=== PATIENT | male | born 1960 | race Caucasian/White ===

== ENCOUNTER → 2016-10-01 | Outpatient (CLI) | payer BC | LOC: GMAL 10:25 | PROVIDERS: ATTEND Family Medicine | DX: R53.83 Other fatigue (principal); Z12.5 Encounter for screening for malignant neoplasm of prostate ==

== ENCOUNTER → 2016-10-05 | Outpatient (CLI) | payer BC, SELFPAY ==
--- NOTE | 2016-10-05 10:15 | CT ---
EXAM DESCRIPTION: Abdomen and pelvis CT. CLINICAL HISTORY: Benign neoplasm of the adrenal gland COMPARISON: January 20, 2015 TECHNIQUE: A volumetric CT with a without contrast was obtained during the portal venous and delayed phases. Images are displayed in multiplanar reconstructions. FINDINGS: GI: No dilated bowel, free air, or free fluid. Liver: No suspicious lesion. Biliary: No calcified gallstones. Spleen: Unremarkable. Pancreas: Unremarkable. Adrenal Glands: The right adrenal gland has decreased in size minimally when compared to the prior study. On the prior exam it measured 4.9 x 4.2 cm. On today's study measures 3.8 by 3.5 cm. The left adrenal gland is unremarkable. Kidneys: No suspicious enhancement. Pelvic organs: The prostate is enlarged. It measures 4.7 cm in diameter. Bones: No suspicious lesion/fracture. Lymph nodes: No enlarged lymph nodes. Lung bases: No significant consolidation or nodularity. IMPRESSION: When compared to the prior study from January 2015 the right adrenal mass has decreased minimally in size and now measures 3.8 x 3.5 cm. Given its near 2 years stability and a slight decrease in size this is likely compatible with a benign adrenal adenoma. No 15 min delayed images were available to calculate absolute washout on today's study. Prostatomegaly noted. The prostate measures 4.7 cm in the transverse dimension. Electronically signed by: Vikas Brumfield MD 10/05/2016 10:13
== END ==
LOC: CT 08:11
PROVIDERS: ATTEND Family Medicine
DX: D35.00 Benign neoplasm of unspecified adrenal gland (principal)

== ENCOUNTER → 2016-11-11 | Outpatient (CLI) | payer BC, SELFPAY | END | disposition home or self-care (01) | LOC: GMAL 10:42 | PROVIDERS: ATTEND Family Medicine | DX: R97.20 Elevated prostate specific antigen [PSA] (principal) ==

== ENCOUNTER 2017-01-27 15:18 | Emergency (ER) | payer BC ==
[2017-01-27] MEDS ORDERED: SODIUM CHLORIDE 0.9% 1000ML 1,000 ML IVS ONE (15:58)
[2017-01-27] MEDS ORDERED: ONDANSETRON INJ 4 MG/2 ML VIAL IV ONE (15:58)
[2017-01-27] MEDS ORDERED: HYDROmorphone HCL INJ 2 MG/ML VIAL IV ONE (15:58)
--- NOTE | 2017-01-27 16:02 | ED.PDOC ---
History of Present Illness - General Chief Complaint: Abdominal Pain Stated Complaint: Abdominal Pain Time Seen by Provider: 01/27/17 15:58 Information Source: patient, RN notes reviewed, Vital Signs reviewed Exam Limitations: no limitations - History of Present Illness Initial Comments: Patient reports RLQ abd. pain that started 2 days ago. The pain has gotten worse. + nausea and diarrhea but he did take mag citrate thinking he was constipated. No fever or chills. No TAN. no back pain, no urinary symptoms. Abdominal Pain Onset Location: RUQ Pain Radiation: no radiation Quality: severe, steady, stabbing Timing/Duration: days - 2 Improving Factors: nothing Worsening Factors: movement Associated Symptoms: diarrhea, nausea/vomiting Review of Systems - Review of Systems Constitutional: States: no symptoms reported. Denies: chills, fever EENTM: States: no symptoms reported Respiratory: States: no symptoms reported Cardiology: States: no symptoms reported Gastrointestinal/Abdominal: States: see HPI, abdominal pain, diarrhea, nausea Genitourinary: States: no symptoms reported Musculoskeletal: States: no symptoms reported. Denies: back pain Skin: States: no symptoms reported Neurological: States: no symptoms reported. Denies: headache Past Medical History (General) - Patient Medical History Hx Hypertension: Yes Hx Diabetes: No Hx Cancer: No Hx Hepatitis C: No Surgical History: no surgical history - Vaccination History Hx Tetanus, Diphtheria Vaccination: No Hx Influenza Vaccination: No Hx Pneumococcal Vaccination: No Immunizations Up to Date: Yes - Social History Hx Tobacco Use: No Hx Alcohol Use: No Hx Substance Use: No Hx Substance Use Treatment: No Hx Depression: No - Female History Patient : No Family Medical History - Family History Mother Family History: Unknown Physical Exam - Physical Exam General Appearance: Alert, Ill Appearing, Well Developed, Well Groomed, Well Hydrated, Well Nourished, Other - Uncomfortable Neck: non-tender, full range of motion, supple, normal inspection Respiratory: chest non-tender, lungs clear, normal breath sounds, no respiratory distress, no accessory muscle use Cardiovascular/Chest: regular rate, rhythm, no gallop, no murmur Gastrointestinal/Abdominal: abnormal bowel sounds - decreased, guarding, rebound - RLQ, tenderness - RLQ Extremity: normal range of motion, non-tender, normal inspection Neurologic: alert, normal mood/affect, oriented x 3 Skin Exam: normal color, warm/dry Comments: Vital Signs - 24 hr 01/27/17 15:31 Temperature 102.0 F H Pulse Rate [ 97 H Left Radial] Respiratory 18 Rate Blood Pressure 133/94 [Left Arm] O2 Sat by Pulse 99 Oximetry Progress - Results/Orders Results/Orders: Laboratory Tests 01/27/17 01/27/17 01/27/17 15:45 15:45 15:45 WBC 21.9 H* RBC 4.80 Hgb 14.7 Hct 43.2 MCV 89.9 MCH 30.6 MCHC 34.1 RDW 13.2 Plt Count 347 MPV 7.2 L Absolute Neuts (auto) Not Reportable Absolute Lymphs (auto) Not Reportable Absolute Monos (auto) Not Reportable Absolute Eos (auto) Not Reportable Neutrophils % Not Reportable Neutrophils % (Manual) 87.0 Lymphocytes % Not Reportable Lymphocytes % (Manual) 3.0 Monocytes % Not Reportable Monocytes % (Manual) 2.0 Eosinophils % Not Reportable Basophils % Not Reportable Band Neutrophils 8.0 Platelet Estimate Normal Normal RBC Morphology Normal rbc morph Sodium 135 Potassium 3.9 Chloride 96 L Carbon Dioxide 28 Anion Gap 14.9 BUN 14 Creatinine 0.84 BUN/Creatinine Ratio 16.7 Random Glucose 140 H Serum Osmolality 272.9 L Calcium 8.9 Total Bilirubin 2.7 H* AST 22 ALT 26 Alkaline Phosphatase 57 Serum Total Protein 8.2 Albumin 4.4 Globulin 3.8 H Albumin/Globulin Ratio 1.2 Urine Color Yellow Urine Appearance Clear Urine pH 8.0 H Ur Specific [place] 1.020 Urine Protein 100 H Urine Glucose (UA) Negative Urine Ketones Negative Urine Blood Trace-intact H Urine Nitrite Negative Urine Bilirubin Negative Urine Urobilinogen 0.2 Ur Leukocyte Esterase Negative Urine RBC 3-5 H Urine WBC 1-3 Ur Epithelial Cells 1-3 Amorphous Sediment 2+ Urine Bacteria Rare - EKG/XRAY/CT CT Ordered: Yes - Abd/Pelvis CT Interpretation Call Back: Yes - Ruptured Appendicitis Departure - Departure Clinical Impression: Ruptured suppurative appendicitis Time of Disposition: 17:13 Disposition: Transfer to Hospital Condition: Fair Departure Forms: ED Discharge - Pt. Copy, Patient Portal Self Enrollment Referrals: Higinio Payton III, MD [Primary Care Provider] - 1-2 Weeks Home Medications: Ambulatory Orders Albuterol Sulfate [Proair Hfa] 2 puff INH Q6H PRN #1 01/14/15 HYDROcodone 10MG/APAP 325MG [[place] 10/325] 1 tab PO .Q4H PRN #20 tab 01/14/15 Levofloxacin [Levaquin] 750 mg PO DAILY #7 tab 01/14/15 Ondansetron Tab [Zofran Tab] 4 mg PO Q6HRS PRN #15 tab 01/14/15 Transfer to Outside Facility - Transfer Information Accepting Provider:: Dr. Fritz Accepting Facility: [facility] Reason for Transfer: specialized care not available
--- NOTE | 2017-01-27 17:06 | CT ---
EXAM: Abdomen/Pelvis w/Contrast CLINICAL INDICATION: 56-year-old male with RIGHT lower quadrant pain with guarding and rebound. COMPARISON: 10/05/2016. EXAMINATION: CT of the abdomen and pelvis was performed following intravenous administration of contrast. Oral contrast was not administered. Multiplanar reformatted images were provided. This exam was performed according to our departmental dose optimization program which includes use of automated exposure control, adjustment of the mA and/or kV according to patient size and/or use of iterative reconstruction technique. FINDINGS: Chest: Evaluation through the lung bases reveals no focal opacity, pleural effusion or pneumothorax. 3 mm RIGHT lower lobe pulmonary micronodule, (series 2, image 11). Small posterior lateral RIGHT side fat-containing diaphragmatic hernia. Heart size is within normal limits. No pericardial effusion. Abdomen and pelvis: The liver, gallbladder, pancreas, spleen, bilateral kidneys and bilateral adrenal glands are within normal limits. The vessels are patent and normal in caliber. No abdominopelvic lymph nodes are noted to be pathologically enlarged by CT measurement criteria. The bowel is within normal limits with liquid fecal debris present throughout the large bowel compatible with diarrhea. There is no abnormal bowel wall thickness or bowel dilation. Extensive inflammatory changes identified present at the level of the RIGHT lower quadrant with extensive linear stranding compatible with fluid and edema. Few foci of air lucency are identified extraluminal in location compatible with perforation. The appendix is identified enlarged appearance with enhancing wall. Focal rim-enhancing fluid collection with air lucency compatible with developing abscess is identified at the tip of the appendix measuring 1.7 x 2.7 x 3.1 cm, (series 2, image 66). The osseous structures are within normal limits. IMPRESSION: 1. Ruptured appendicitis as detailed above with small focal developing abscess at the tip of the appendix. 2. Liquid fecal material compatible with unformed stool and diarrhea throughout the large bowel. 3. Critical findings were discussed with Dr. Stanton 1705 hours 01/27/2017. Electronically signed by: Ada Tucker MD 01/27/2017 5:06 PM CDT
[2017-01-27] MEDS ORDERED: PIPERACILLIN/TAZOBACTAM 3.375 GM in SODIUM CHLORIDE 0.9% 100ML 100 ML IVPB ONE (17:12)
[2017-01-27] MEDS ORDERED: SODIUM CHLORIDE 0.9% 100ML 100 ML IVPB ONE (17:22)
[2017-01-27] MEDS ORDERED: PIPERACILLIN/TAZOBACTAM 3.375 GM VIAL IVPB ONE (17:22)
[2017-01-27 17:31] VITALS: BP 131/80; TEMP 102.5; O2SAT 96
== END 2017-01-27 17:42 | disposition short-term general hospital (02) ==
LOC: ER 15:18
DX: I10 Essential (primary) hypertension (principal)

== ENCOUNTER 2017-03-30 05:53 | Day surgery (SDC) | payer BC ==
[2017-03-30] MEDS ORDERED: fentaNYL CITRATE INJ 50 MCG/ML AMP ONE (07:00)
[2017-03-30] MEDS ORDERED: LIDOCAINE 1% 10 ML VIAL INJ ONE (07:00)
[2017-03-30] MEDS ORDERED: MIDAZOLAM INJ 5 MG/5 ML VIAL ONE (07:00)
[2017-03-30] MEDS ORDERED: PROPOFOL 200 MG/20 ML VIAL IV ONE (07:00)
[2017-03-30] MEDS ORDERED: LACTATED RINGERS 1,000 ML ONE (08:33)
[2017-03-30] MEDS ORDERED: LACTATED RINGERS 1,000 ML IVS ONE (10:15)
--- NOTE | 2017-03-30 10:28 | OP ---
DATE OF PROCEDURE: 03/30/17 PREPROCEDURE DIAGNOSIS: 1. History of perforated appendicitis and no prior colonoscopy. POSTPROCEDURE DIAGNOSIS: 1. Internal hemorrhoids. PROCEDURE: 1. Colonoscopy. SURGEON: Valentin Bhatt MD. SEDATION: Monitored anesthesia care. ESTIMATED BLOOD LOSS: 0 mL. PROCEDURE: Informed consent was obtained prior to sedation. The preprocedure cardiopulmonary assessment was satisfactory. The patient was brought to the Endoscopy Suite and placed in the left lateral decubitus position. The patient was then sedated by the anesthesia team. Digital rectal exam revealed no abnormalities. The tip of the Olympus colonoscope was inserted into the rectum and advanced under direct visualization to the cecum as identified by the presence of the appendiceal orifice and ileocecal valve. Preparation of the colon was good. Upon reaching the cecum, the endoscope was slowly withdrawn from the patient with careful attention paid to the entire colonic mucosa for the identification of any flat polyps or small vascular lesions. There were no polyps in the entire colon. Around the area of the appendix, there was no evidence of a polyp or mass lesions. The cecum appeared normal. The colon was normal. The endoscope was withdrawn into the rectum where a retroflexed view of the anal verge showed small, non-bleeding internal hemorrhoids. The endoscope was then withdrawn from the patient and the procedure terminated. RECOMMENDATION: 1. Discharge the patient home with escort. 2. Advance to regular diet. 3. Continue present medications. 4. Followup with general surgeon as an outpatient. 5. Repeat colonoscopy in 10 years for screening purposes. #[id number] [facility]
[2017-03-30 14:32] VITALS: BP 159/90; TEMP 98.6; O2SAT 99
== END 2017-03-30 11:45 | disposition home or self-care (01) ==
LOC: AMB 05:53
PROVIDERS: ATTEND Internal Medicine Gastroenterology
DX: K35.2 Acute appendicitis with generalized peritonitis (principal); K64.8 Other hemorrhoids; I10 Essential (primary) hypertension; E66.3 Overweight; Z68.25 Body mass index [BMI] 25.0-25.9, adult; Z79.899 Other long term (current) drug therapy
CPT/HCPCS: 00810; 45378; J2250; J3010; J3490; J7120

== ENCOUNTER → 2018-07-13 | Outpatient (CLI) | payer BC | LOC: GMAL 11:49 | PROVIDERS: ATTEND Family Medicine | DX: D51.3 Other dietary vitamin B12 deficiency anemia (principal); R53.83 Other fatigue; E55.9 Vitamin D deficiency, unspecified; Z12.5 Encounter for screening for malignant neoplasm of prostate ==